=== PATIENT | female | born 1975 | race Asian ===

== ENCOUNTER 2019-06-05 14:49 | Outpatient (CLI) | payer OTHER ==
--- NOTE | 2019-06-11 13:46 | Mammography Report ---
Reason: SCREENING MAMMO Procedure Date: 06/05/2019 Accession Number: [id number] / [id number] Procedure: SHY - Screening Mammo w/Shan CPT Code: Final Report FULL RESULT: EXAM: Screening Mammo w/Shan DATE: 06/05/2019 3:12 PM CLINICAL HISTORY: The patient is an asymptomatic 44-year-old female presenting for screening mammography. No reported personal nor family history of breast cancer. TECHNIQUE: (B) - Bilateral CC and MLO views were obtained. COMPARISON: [facility] 05/15/2017 and 04/18/2014 PARENCHYMAL PATTERN: (A) - The breasts demonstrate scattered fibroglandular densities bilaterally. FINDINGS: The pattern of isodense nodular asymmetry is stable given positional variation. There are no suspicious masses, calcifications, or areas of distortion. IMPRESSION: Benign findings. BI-RADS category 2. RECOMMENDATION: (ANNUAL) - Recommend routine annual screening mammography. BI-RADS CATEGORY: (2) - Benign Findings. STANDARD QUALIFYING STATEMENTS: 1. This examination was not reviewed with the aid of Computer-Aided Detection (CAD). 2. A negative or benign imaging report should not preclude biopsy if clinically suspicious findings are present. 3. Dense breasts may obscure an underlying neoplasm. 4. This examination was reviewed with the aid of 3D breast imaging (tomosynthesis).
== END 2019-06-05 14:50 | disposition home or self-care (01) ==
LOC: DI 14:49
DX: Z12.31 Encounter for screening mammogram for malignant neoplasm of breast (principal)
CPT/HCPCS: 77063; 77067